=== PATIENT | female | born 1990 | race Caucasian/White ===

== ENCOUNTER 2018-02-14 12:54 | Emergency (ER) | payer SELFPAY ==
[2018-02-14 13:38] LABS: Hemoglobin 11.9 g/dL (12.0-16.0); Mean Corpuscular HGB CONC 31.7 g/dL (32.0-36.0); Mean Corpuscular Hemoglobin 23.4 pg (27.0-31.0); Mean Platelet Volume 6.8 fL (7.4-10.4); Platelet Count 405 thou/uL (130-400); RBC Distribution Width 14.7 % (11.5-14.5); Red Blood Cell (RBC) Count 5.08 mill/uL (4.20-5.40); White Blood Cell (WBC) Count 10.6 thou/uL (4.8-10.8)
[2018-02-14 13:45] LABS: ALT (SGPT) 31 U/L (8-55); AST (SGOT) 23 U/L (5-34); Albumin 4.1 g/dL (3.5-5.0); Alkaline Phosphatase 107 U/L (40-150); Anion Gap 13 mmol/L (10-20); BUN (Urea Nitrogen) 10 mg/dL (7.0-18.7); Bilirubin, Total 0.4 mg/dL (0.2-1.2); Calc. Creatinine Clearance 0 mL/min (70-130); Calcium 9.6 mg/dL (7.8-10.44); Carbon Dioxide 25 mmol/L (22-29); Chloride 105 mmol/L (98-107); Estimated GFR-MDRD 86; Globulin 3.5 g/dL (2.4-3.5); Glucose 100 mg/dL (70-105); Lipase 19 U/L (8-78); Potassium 4.3 mmol/L (3.5-5.1); Protein, Total 7.6 g/dL (6.0-8.3); Sodium 139 mmol/L (136-145)
[2018-02-14 13:53] LABS: Bilirubin Negative (Negative); Blood, Urine Moderate (Negative); Clarity Slightly Cloudy (Clear); Glucose, Urine (Dipstick) Negative (Negative); Leukocyte Moderate (Negative); Nitrite Negative (Negative); Protein, Urine (Dipstick) Negative (Neg-Trace); Urobilinogen 0.2 mg/dL (0.2-1.0); pH, Urine 5.5 (5.0-9.0)
[2018-02-14 13:54] LABS: Pregnancy Test - Urine (BHCG) Negative (Negative)
[2018-02-14 13:55] LABS: Pregu Control Background? CLEAR/WHITE (CLR/WHITE); Pregu Control Bar Appear? YES (CONTROL BAR)
[2018-02-14 13:58] LABS: #Basophils 0.1 thou/uL (0.0-0.2); #Eosinphils 0.2 thou/uL (0.0-0.7); #Lymphocytes 2.7 thou/uL (1.20-3.40); #Monocytes 0.7 thou/uL (0.11-0.59); #Neutrophils 6.9 thou/uL (1.40-6.50); %Basophils 1.2 % (0.0-1.0); %Eosinophils 2.1 % (0.0-10.0); %Lymphocytes 25.6 % (21.0-51.0); %Monocytes 6.4 % (0.0-10.0); %Neutrophils 64.7 % (42.0-75.0); MDiff Complete? YES; Microcytosis SLIGHT = 6-15 cells (100X) (0-5/hpf); PLT Morphology Comment Appears Increased
[2018-02-14 14:01] LABS: Bacteria/HPF Rare-Few HPF (None Seen); Crystals/HPF 1+ AMORPH URATES HPF (Negative)
[2018-02-15 19:53] LABS: Chlamydia by PCR Not Detected (NotDetected); GC by PCR DETECTED (NotDetected)
== END 2018-02-14 14:05 | disposition home or self-care (01) ==
LOC: SCSER 12:54
DX: N39.0 Urinary tract infection, site not specified (principal); F41.9 Anxiety disorder, unspecified; F32.9 Major depressive disorder, single episode, unspecified; F17.210 Nicotine dependence, cigarettes, uncomplicated; Z79.01 Long term (current) use of anticoagulants; Z79.899 Other long term (current) drug therapy
CPT/HCPCS: 36415; 80053; 81003; 81015; 81025; 83690; 85025; 87086; 87480; 87491; 87510; 87591; 87660; 99284

== ENCOUNTER 2018-02-26 14:44 | Emergency (ER) | payer SELFPAY ==
[2018-02-26] MEDS ORDERED: Lidocaine 1% (PF) 30 ML VIAL ONE (15:12)
[2018-02-26] MEDS ORDERED: Azithromycin 250 MG TAB ONE (15:12)
[2018-02-26] MEDS ORDERED: cefTRIAXone\\ROCEPHIN 250 MG VIAL ONE (15:12)
== END 2018-02-26 15:50 | disposition home or self-care (01) ==
LOC: ER/OP 14:44
DX: A64 Unspecified sexually transmitted disease (principal)
CPT/HCPCS: 96372; J0696; J2001

== ENCOUNTER 2019-08-18 15:41 | Emergency (ER) | payer SELFPAY ==
[2019-08-18 16:34] LABS: #Basophils 0.1 thou/uL (0.0-0.2); #Eosinphils 0.3 thou/uL (0.0-0.7); #Lymphocytes 3.8 thou/uL (1.20-3.40); #Monocytes 0.6 thou/uL (0.11-0.59); #Neutrophils 9.9 thou/uL (1.40-6.50); %Basophils 0.8 % (0.0-1.0); %Eosinophils 2.3 % (0.0-10.0); %Lymphocytes 25.9 % (21.0-51.0); Hemoglobin 12.8 g/dL (12.0-16.0); Mean Corpuscular HGB CONC 32.8 g/dL (32.0-36.0); Mean Corpuscular Hemoglobin 26.3 pg (27.0-31.0); Mean Platelet Volume 6.9 fL (7.4-10.4); Platelet Count 425 thou/uL (130-400); RBC Distribution Width 13.3 % (11.5-14.5); Red Blood Cell (RBC) Count 4.87 mill/uL (4.20-5.40); White Blood Cell (WBC) Count 14.8 thou/uL (4.8-10.8)
[2019-08-18 17:01] LABS: ALT (SGPT) 28 U/L (8-55); AST (SGOT) 19 U/L (5-34); Albumin 4.1 g/dL (3.5-5.0); Alkaline Phosphatase 107 U/L (40-110); Anion Gap 12 mmol/L (10-20); BUN (Urea Nitrogen) 9 mg/dL (7.0-18.7); Bilirubin, Total 0.6 mg/dL (0.2-1.2); Calc. Creatinine Clearance 0 mL/min (70-130); Calcium 9.5 mg/dL (7.8-10.44); Carbon Dioxide 28 mmol/L (22-29); Chloride 104 mmol/L (98-107); Estimated GFR-MDRD 78; Globulin 3.2 g/dL (2.4-3.5); Glucose 121 mg/dL (70-105); Lipase 17 U/L (8-78); Potassium 3.7 mmol/L (3.5-5.1); Protein, Total 7.3 g/dL (6.0-8.3); Sodium 140 mmol/L (136-145)
[2019-08-18 17:09] LABS: BHCG - Serum Negative (NEGATIVE); Pregs Control Background? CLEAR/WHITE (CLR/WHITE); Pregs Control Bar Appear? YES (CONTROL BAR)
[2019-08-18 17:35] LABS: Bilirubin Negative (Negative); Blood, Urine 2+ (Negative); Clarity Turbid (Clear); Glucose, Urine (Dipstick) Normal (Negative); Leukocyte 500 Leu/uL (Negative); Nitrite Negative (Negative); Protein, Urine (Dipstick) 20 mg/dL (Neg-Trace); Urobilinogen Normal mg/dL (Less than 2)
[2019-08-18 17:42] LABS: Bacteria/HPF None Seen HPF (None Seen)
== END 2019-08-18 17:42 | disposition left against medical advice (07) ==
LOC: ERS 15:41
DX: Z53.21 Procedure and treatment not carried out due to patient leaving prior to being seen by health care provider (principal)
CPT/HCPCS: 36415; 80053; 81003; 81015; 83690; 84703; 85025

== ENCOUNTER 2019-08-20 19:13 | Emergency (ER) | payer SELFPAY ==
[~2019-08-20 19:13] MED LIST: Iopamidol-370 76% 500 ML 1 ML ONE
[2019-08-20 20:48] LABS: #Basophils 0.1 thou/uL (0.0-0.2); #Eosinphils 0.3 thou/uL (0.0-0.7); #Lymphocytes 3.9 thou/uL (1.20-3.40); #Neutrophils 8.6 thou/uL (1.40-6.50); %Basophils 0.6 % (0.0-1.0); %Eosinophils 2.2 % (0.0-10.0); %Lymphocytes 28.2 % (21.0-51.0); %Monocytes 7.3 % (0.0-10.0); %Neutrophils 61.7 % (42.0-75.0); Hemoglobin 12.5 g/dL (12.0-16.0); Mean Corpuscular HGB CONC 32.3 g/dL (32.0-36.0); Mean Corpuscular Volume 80.7 fL (78.0-98.0); Platelet Count 406 thou/uL (130-400); RBC Distribution Width 13.4 % (11.5-14.5); Red Blood Cell (RBC) Count 4.79 mill/uL (4.20-5.40); White Blood Cell (WBC) Count 13.9 thou/uL (4.8-10.8)
[2019-08-20 21:28] LABS: ALT (SGPT) 28 U/L (8-55); AST (SGOT) 18 U/L (5-34); Alkaline Phosphatase 109 U/L (40-110); Anion Gap 13 mmol/L (10-20); BUN (Urea Nitrogen) 9 mg/dL (7.0-18.7); Bilirubin, Total 0.6 mg/dL (0.2-1.2); Calc. Creatinine Clearance 0 mL/min (70-130); Calcium 8.9 mg/dL (7.8-10.44); Carbon Dioxide 26 mmol/L (22-29); Chloride 104 mmol/L (98-107); Estimated GFR-MDRD 65; Globulin 3.2 g/dL (2.4-3.5); Glucose 93 mg/dL (70-105); Lipase 17 U/L (8-78); Potassium 3.7 mmol/L (3.5-5.1); Protein, Total 7.2 g/dL (6.0-8.3); Sodium 139 mmol/L (136-145)
[2019-08-20 22:11] LABS: Bilirubin Negative (Negative); Blood, Urine Negative (Negative); Clarity Turbid (Clear); Glucose, Urine (Dipstick) Normal (Negative); Leukocyte 500 Leu/uL (Negative); Nitrite Negative (Negative); Protein, Urine (Dipstick) 30 mg/dL (Neg-Trace); RBC/HPF 0-3 HPF (0-3)
[2019-08-20 22:12] LABS: Pregnancy Test - Urine (BHCG) Negative (Negative); Pregu Control Background? CLEAR/WHITE (CLR/WHITE); Pregu Control Bar Appear? YES (CONTROL BAR); Specific Gravity 1.029 (1.002-1.036)
[2019-08-20 22:21] LABS: Bacteria/HPF 1+ HPF (None Seen)
[2019-08-20] MEDS ORDERED: cefTRIAXone\\ROCEPHIN 250 MG VIAL ONE (22:26)
[2019-08-20] MEDS ORDERED: Azithromycin 250 MG TAB ONE (22:26)
[2019-08-20] MEDS ORDERED: Ketorolac Tromethamine 30 MG/ML VIAL ONE (22:26)
--- NOTE | 2019-08-20 22:35 | CT ---
CT abdomen and pelvis with IV contrast HISTORY: Abdomen pain. COMPARISON: 01/25/2017. FINDINGS: Lung bases are clear. Liver remains diffusely hypodense. Within the inferior pole of the le ft kidney, a 0.9 cm oval calculus is present in a nondilated calyx. Ureters are decompressed. Urinary bladder is unremarkable. No enlarged lymph nodes or free fluid. No evidence of bowel obstruction. Appendix not inflamed. IMPRESSION: Nonobstructing 9 mm left renal calculus. Hepatosteatosis.
[2019-08-25 00:15] LABS: Chlamydia by PCR Not Detected (NotDetected); GC by PCR DETECTED (NotDetected)
== END 2019-08-20 23:21 | disposition home or self-care (01) ==
LOC: ERS 19:13
DX: N20.0 Calculus of kidney (principal); N73.9 Female pelvic inflammatory disease, unspecified; N76.0 Acute vaginitis; F41.9 Anxiety disorder, unspecified; F32.9 Major depressive disorder, single episode, unspecified; F17.210 Nicotine dependence, cigarettes, uncomplicated; Z86.711 Personal history of pulmonary embolism
CPT/HCPCS: 36415; 74177; 80053; 81003; 81015; 81025; 83690; 85025; 87480; 87491; 87510; 87591; 87660; 96374; 96375; J0696; J1885; Q9967

== ENCOUNTER 2020-01-09 15:32 | Emergency (ER) | payer OTHER, SELFPAY ==
[2020-01-10 15:21] LABS: SARS-CoV-2 MS2 Positive; SARS-CoV-2 N Gene Negative; SARS-CoV-2 S Gene Negative; SARS-CoV-2 orf1ab Negative
== END 2020-01-09 16:15 | disposition home or self-care (01) ==
LOC: ERS 15:32
DX: Z20.828 Contact with and (suspected) exposure to other viral communicable diseases (principal); F41.9 Anxiety disorder, unspecified; F32.9 Major depressive disorder, single episode, unspecified; F17.210 Nicotine dependence, cigarettes, uncomplicated; Z86.711 Personal history of pulmonary embolism
CPT/HCPCS: 87635; 99283; U0003

== ENCOUNTER 2020-02-03 11:54 | Emergency (ER) | payer OTHER, SELFPAY ==
[2020-02-04 14:15] LABS: SARS-CoV-2 MS2 Positive; SARS-CoV-2 N Gene Negative; SARS-CoV-2 S Gene Negative; SARS-CoV-2 orf1ab Negative
== END 2020-02-03 12:15 | disposition home or self-care (01) ==
LOC: ERS 11:54
DX: R05 Cough (principal); Z20.828 Contact with and (suspected) exposure to other viral communicable diseases; F17.210 Nicotine dependence, cigarettes, uncomplicated; F41.9 Anxiety disorder, unspecified; F32.9 Major depressive disorder, single episode, unspecified; Z86.711 Personal history of pulmonary embolism
CPT/HCPCS: 87635; 99283; U0003

== ENCOUNTER 2020-11-09 17:16 | Observation (INO) | payer OTHER, SELFPAY ==
[2020-11-09] MEDS ORDERED: Morphine 4 MG/ML VIAL ONE (17:23)
[2020-11-09] MEDS ORDERED: PROPOFOL 20 ML ONE (17:47)
[2020-11-09] MEDS ORDERED: Boostrix 0.5 ML (Tdap) VIAL ONE (17:56)
[2020-11-09] MEDS ORDERED: Succinylcholine 200 MG/10 ml SYRINGE FS ONE (17:56)
[2020-11-09 18:01] LABS: #Eosinphils 0.2 thou/uL (0.0-0.7); Mean Corpuscular Volume 78.5 fL (78.0-98.0)
[2020-11-09 18:08] LABS: #Lymphocytes 3.4 thou/uL (1.20-3.40); #Monocytes 0.6 thou/uL (0.11-0.59); #Neutrophils 9.7 thou/uL (1.40-6.50); %Basophils 0.2 % (0.0-1.0); %Eosinophils 1.2 % (0.0-10.0); %Lymphocytes 24.5 % (21.0-51.0); Hemoglobin 12.2 g/dL (12.0-16.0); Mean Corpuscular HGB CONC 33.2 g/dL (32.0-36.0); Mean Platelet Volume 7.1 fL (7.4-10.4); Platelet Count 371 thou/uL (130-400); RBC Distribution Width 14.2 % (11.5-14.5); Red Blood Cell (RBC) Count 4.68 mill/uL (4.20-5.40); White Blood Cell (WBC) Count 13.9 thou/uL (4.8-10.8)
[2020-11-09 18:09] LABS: BHCG - Serum Negative (NEGATIVE); Pregs Control Background? CLEAR/WHITE (CLR/WHITE); Pregs Control Bar Appear? YES (CONTROL BAR)
[2020-11-09 18:23] LABS: ALT (SGPT) 28 U/L (8-55); AST (SGOT) 23 U/L (5-34); Albumin 3.9 g/dL (3.5-5.0); Alkaline Phosphatase 101 U/L (40-110); Anion Gap 11 mmol/L (10-20); BUN (Urea Nitrogen) 10 mg/dL (7.0-18.7); Bilirubin, Total 0.3 mg/dL (0.2-1.2); Calc. Creatinine Clearance 0 mL/min (70-130); Calcium 8.9 mg/dL (7.8-10.44); Carbon Dioxide 27 mmol/L (22-29); Chloride 106 mmol/L (98-107); Globulin 3.2 g/dL (2.4-3.5); Glucose 124 mg/dL (70-105); Magnesium 1.9 mg/dL (1.6-2.6); Potassium 3.4 mmol/L (3.5-5.1); Protein, Total 7.1 g/dL (6.0-8.3); Sodium 141 mmol/L (136-145)
[2020-11-09] MEDS ORDERED: Fentanyl 100 MCG/2 ML VIAL ONE (18:40)
[2020-11-09] MEDS ORDERED: traMADol HCl 50 MG TAB PO PRN (19:00)
[2020-11-09] MEDS ORDERED: TETANUS, DIPHTHERIA TOX,ADULT (TDVAX) 0.5 ML VIAL IM ONE (19:00)
[2020-11-09] MEDS ORDERED: Morphine 2 MG/ML VIAL SLOW IVP PRN (19:00)
[2020-11-09] MEDS ORDERED: Dextrose 50% Abboject 50 ML SYRINGE SLOW IVP PRN (19:02)
[2020-11-09] MEDS ORDERED: Dextrose 5% in Water 1,000 ML IV PRN (19:02)
[2020-11-09] MEDS ORDERED: Ondansetron PF 4 MG/2 ML Vial IVP PRN (19:02)
[2020-11-09] MEDS ORDERED: hydrALAZINE 20 MG/ML VIAL SLOW IVP PRN (19:07)
[2020-11-09] MEDS ORDERED: Cyclobenzaprine 10 MG TAB PO PRN (19:26)
[2020-11-09 20:54] LABS: Prothrombin Time 13.1 sec (12.0-14.7)
[2020-11-09] MEDS ORDERED: Potassium Phosphate 30 MMOL in Sodium Chloride 0.9% 500 ML IVPB SCH (21:00)
[2020-11-09] MEDS: Acetaminophen 325 MG TAB PO SCH (21:26)
[2020-11-09] MEDS: Gabapentin 100 MG CAP PO SCH (21:27)
[2020-11-09] MEDS: Ibuprofen 200 MG TAB PO SCH (21:27)
[2020-11-09] MEDS: Senokot S 8.6-50 MG TAB PO SCH (21:27)
[2020-11-09] MEDS: Lactated Ringer's 1,000 ML IV SCH (21:33)
[2020-11-09 23:24] VITALS: BMI 49.6
[2020-11-10] MEDS: Acetaminophen 325 MG TAB PO SCH ×4 (00:31→20:00)
[2020-11-10] MEDS: traMADol HCl 50 MG TAB PO SCH ×4 (00:31→18:42)
[2020-11-10] MEDS: Ibuprofen 200 MG TAB PO SCH ×3 (04:46→22:07)
[2020-11-10 06:01] LABS: SARS-CoV-2 PCR by NAA Not Detected (NotDetected)
[2020-11-10] MEDS: Lactated Ringer's 1,000 ML IV SCH ×2 (06:07→16:54)
[2020-11-10] MEDS ORDERED: Clindamycin/D5W 900 MG in Premix Bag 1 BAG IVPB SCH (07:15)
[2020-11-10] MEDS: Gabapentin 100 MG CAP PO SCH ×3 (09:04→22:03)
[2020-11-10] MEDS: Polyethylene Glycol 3350 17 GM Packet PO SCH (09:07)
[2020-11-10] MEDS: Senokot S 8.6-50 MG TAB PO SCH ×2 (09:07→22:03)
[2020-11-10] MEDS ORDERED: Fentanyl 100 MCG/2 ML VIAL ONE ×3 (14:00→17:08)
[2020-11-10] MEDS ORDERED: Midazolam HCl 2 mg/2 ml Vial ONE ×2 (14:12→17:08)
[2020-11-10] MEDS ORDERED: Clindamycin/D5W 900 mg/50 ml Premix Bag ONE (14:41)
[2020-11-10] MEDS ORDERED: Bupivacaine PF 0.5% 30 ML VIAL ONE (17:19)
[2020-11-10] MEDS ORDERED: Ondansetron PF 4 MG/2 ML Vial ONE (17:32)
[2020-11-10] MEDS ORDERED: diphenhydrAMINE 50 MG/ML VIAL ONE (17:32)
[2020-11-10] MEDS ORDERED: Bupivacaine HCl 0.5%/Epinephrine 1:200,000/PF 30 ml Vial ONE (17:32)
[2020-11-10] MEDS ORDERED: PROPOFOL 200 MG/20 ML VIAL ONE (17:32)
[2020-11-10] MEDS ORDERED: Dexamethasone 20 MG/5 ML VIAL ONE (17:32)
[2020-11-10] MEDS ORDERED: Ketorolac Tromethamine 30 MG/ML VIAL ONE (17:32)
[2020-11-10] MEDS ORDERED: ePHEDrine Sulfate 50 MG/10 ML VIAL ONE (17:32)
[2020-11-10] MEDS ORDERED: PHENYLEPHRINE-NS 100 MCG/ML 10 ML SYRINGE ONE (17:32)
[2020-11-10] MEDS: Clindamycin/D5W 900 MG in Premix Bag 1 BAG IVPB SCH (22:04)
[2020-11-11] MEDS: Acetaminophen 325 MG TAB PO SCH ×4 (00:39→18:06)
[2020-11-11] MEDS: traMADol HCl 50 MG TAB PO SCH ×4 (00:39→18:06)
[2020-11-11] MEDS: Lactated Ringer's 1,000 ML IV SCH ×2 (01:13→12:16)
[2020-11-11] MEDS: Ibuprofen 200 MG TAB PO SCH ×2 (05:19→14:08)
[2020-11-11] MEDS: Clindamycin/D5W 900 MG in Premix Bag 1 BAG IVPB SCH ×2 (05:20→14:07)
[2020-11-11] MEDS: Gabapentin 100 MG CAP PO SCH ×2 (09:22→14:08)
[2020-11-11] MEDS: Senokot S 8.6-50 MG TAB PO SCH (09:24)
[2020-11-11] MEDS: Polyethylene Glycol 3350 17 GM Packet PO SCH (09:24)
[2020-11-11 15:55] VITALS: BP 128/73; TEMP 98.6
== END 2020-11-11 19:17 | disposition home or self-care (01) ==
LOC: ERS 17:16 → SURG B 19:03 → INTOOBSV 19:03
PROVIDERS: ADMIT Surgery; ATTEND Surgery
PROC: 0PSJ04Z Reposition Left Radius with Internal Fixation Device, Open Approach (ICD-10-PCS; principal; 2020-11-10)
PROC: 0PSL04Z Reposition Left Ulna with Internal Fixation Device, Open Approach (ICD-10-PCS; 2020-11-10)
DX: S52.302B Unspecified fracture of shaft of left radius, initial encounter for open fracture type I or II (principal); S52.202B Unspecified fracture of shaft of left ulna, initial encounter for open fracture type I or II; E87.6 Hypokalemia; G89.11 Acute pain due to trauma; S06.9X9A Unspecified intracranial injury with loss of consciousness of unspecified duration, initial encounter; F17.210 Nicotine dependence, cigarettes, uncomplicated; S30.1XXA Contusion of abdominal wall, initial encounter; M47.812 Spondylosis without myelopathy or radiculopathy, cervical region; Z88.0 Allergy status to penicillin; Z20.822 Contact with and (suspected) exposure to COVID-19; V43.52XA Car driver injured in collision with other type car in traffic accident, initial encounter; Y92.411 Interstate highway as the place of occurrence of the external cause
CPT/HCPCS: 25565; 36415; 70450; 71045; 72125; 74177; 76000; 80053; 83735; 84703; 85025; 85610; 85730; 86850; 86900; 86901; 87635; 90471; 90715; 93005; 96374; 96375; 96376; 99156; 99157; C1713; G0378; G0390; J0360; J0690; J1100; J1200; J1885; J2250; J2270; J2405; J2704; J3010; J3490; J7030; Q9967; S0020; U0003; U0005

== ENCOUNTER 2022-09-04 14:10 | Emergency (ER) | payer OTHER ==
[2022-09-04] MEDS ORDERED: Bicillin LA 1.2 MILLION UNITS/2 ML SYRINGE ONE (14:48)
[2022-09-04] MEDS ORDERED: Dexamethasone 10 MG/ML VIAL ONE (14:48)
== END 2022-09-04 15:16 | disposition home or self-care (01) ==
LOC: ERS 14:10
DX: J02.0 Streptococcal pharyngitis (principal); F17.290 Nicotine dependence, other tobacco product, uncomplicated
CPT/HCPCS: 96372; 99283; J0561; J1100

== ENCOUNTER 2024-05-21 19:05 | Emergency (ER) | payer MEDICAID, SELFPAY ==
[2024-05-21] MEDS ORDERED: Ibuprofen 200 MG TAB ONE (20:18)
[2024-05-21] MEDS ORDERED: Acetaminophen 500 MG TAB ONE (20:18)
[2024-05-21 20:21] LABS: #Basophils 0.07 10x3/uL (0.0-0.2); %Basophils 0.6 % (0.0-1.0); %Eosinophils 2.2 % (0.0-10.0); %Lymphocytes 35.2 % (21.0-51.0); %Monocytes 5.9 % (0.0-10.0); %Neutrophils 55.9 % (42.0-75.0); Hematocrit 38.4 % (36.0-47.0); Hemoglobin 12.4 g/dL (12.0-16.0); Mean Corpuscular HGB CONC 32.3 g/dL (32.0-36.0); Mean Corpuscular Hemoglobin 27.2 pg (27.0-31.0); Mean Corpuscular Volume 84.2 fL (78.0-98.0); Mean Platelet Volume 9.6 fL (7.4-10.4); Platelet Count 326 10x3/uL (130-400); RBC Distribution Width 13.2 % (11.5-14.5); Red Blood Cell (RBC) Count 4.56 mill/uL (4.20-5.40)
[2024-05-21 20:30] LABS: BHCG - Serum Negative (NEGATIVE); Pregs Control Background? CLEAR/WHITE (CLR/WHITE); Pregs Control Bar Appear? YES (CONTROL BAR)
[2024-05-21 20:39] LABS: ALT (SGPT) 12 U/L (8-55); AST (SGOT) 11 U/L (5-34); Albumin 3.6 g/dL (3.5-5.0); Alkaline Phosphatase 86 U/L (40-110); Anion Gap 10 mmol/L (10-20); BUN (Urea Nitrogen) 12 mg/dL (7.0-18.7); Bilirubin, Total 0.5 mg/dL (0.2-1.2); Calc. Creatinine Clearance 0 mL/min (70-130); Calcium 9.4 mg/dL (7.8-10.44); Carbon Dioxide 27 mmol/L (22-29); Chloride 108 mmol/L (98-107); Estimated GFR 90; Globulin 3.6 g/dL (2.4-3.5); Glucose 104 mg/dL (70-105); Lipase 27 U/L (8-78); Potassium 3.8 mmol/L (3.5-5.1); Protein, Total 7.2 g/dL (6.0-8.3); Sodium 141 mmol/L (136-145)
[2024-05-21 22:25] LABS: Bilirubin Negative (Negative); Blood, Urine 3+ (Negative); CAUTI Indications for Culture Pelvic or flank pain; Clarity Turbid (Clear); Glucose, Urine (Dipstick) Normal (Negative); Ketone, Urine Negative (Negative); Leukocyte Negative Leu/uL (Negative); Nitrite Negative (Negative); Protein, Urine (Dipstick) 30 mg/dL (Neg-Trace); RBC/HPF 21-50 HPF (0-3); Specific Gravity, Urine 1.036 (1.002-1.036); Squamous Epithelial 21-50 HPF (0-3); Urobilinogen Normal mg/dL (Less than 2); WBC/HPF 0-3 HPF (0-3); pH, Urine 5.5 (5.0-9.0)
[2024-05-21 22:31] LABS: Bacteria/HPF Rare-Few HPF (None Seen); Urine Culture Reflex No No
[2024-05-22 19:15] LABS: Chlamydia by PCR, Vaginal Swab Not Detected (NotDetected); GC by PCR, Vaginal Swab Not Detected (NotDetected)
== END 2024-05-21 23:48 | disposition home or self-care (01) ==
LOC: ERS 19:05
DX: N20.0 Calculus of kidney (principal); R31.29 Other microscopic hematuria; Z55.6 Problems related to health literacy
CPT/HCPCS: 36415; 74176; 80053; 81001; 83690; 84703; 85025; 87077; 87086; 87480; 87491; 87510; 87591; 87660